=== PATIENT | male | born 1975 | race Caucasian/White ===

== ENCOUNTER 2018-02-01 13:09 | Emergency (ER) | payer MEDICAID ==
[~2018-02-01] VITALS: Ht 177.8 cm; Wt 106.3 kg
[2018-02-01] MEDS ORDERED: ONDANSETRON HCL 4MG/2ML VIAL IV ONE (14:30)
[2018-02-01] MEDS ORDERED: FOLIC ACID 1 MG, THIAMINE HCL 100 MG, MVI, ADULT NO.1 10 ML in DEXTROSE 5% WATER 1,000 ML IV ONE ×4 (14:30)
[2018-02-01 14:35] VITALS: BP 124/78
== END 2018-02-01 16:13 | disposition left against medical advice (07) ==
LOC: ER 13:27
DX: T51.0X1A Toxic effect of ethanol, accidental (unintentional), initial encounter (principal); G92 Toxic encephalopathy; F10.229 Alcohol dependence with intoxication, unspecified; R03.0 Elevated blood-pressure reading, without diagnosis of hypertension; Y90.8 Blood alcohol level of 240 mg/100 ml or more; Y92.89 Other specified places as the place of occurrence of the external cause
CPT/HCPCS: 36415; 70450; 82962; 96365; 96375; 99285; G0482; J3411; J3490; J7070; Z7610